=== PATIENT | male | born 2005 | race African-American/Black ===

== ENCOUNTER 2024-03-22 23:11 | Emergency (ER) | payer OTHER ==
[2024-03-22] MEDS ORDERED: Pantoprazole 40 MG VIAL ONE (23:41)
[2024-03-22] MEDS ORDERED: Mag-Al 1200 mg/1200 mg/30 ML UDCUP ONE (23:54)
[2024-03-22] MEDS ORDERED: Lidocaine Viscous Sol 2% 15 ml UD Cup ONE (23:54)
[2024-03-23 00:08] LABS: #Basophils 0.03 10x3/uL (0.0-0.2); %Basophils 0.6 % (0.0-1.0); %Eosinophils 9.3 % (0.0-10.0); %Lymphocytes 47.2 % (28.0-48.0); %Monocytes 7.6 % (0.0-4.0); %Neutrophils 35.1 % (31.0-61.0); Hematocrit 43.1 % (42.0-52.0); Hemoglobin 13.8 g/dL (14.0-18.0); Mean Corpuscular Hemoglobin 27.1 pg (25.0-35.0); Mean Corpuscular Volume 84.7 fL (78.0-98.0); Mean Platelet Volume 10.6 fL (7.4-10.4); Platelet Count 199 10x3/uL (130-400); Red Blood Cell (RBC) Count 5.09 mill/uL (4.00-5.20)
[2024-03-23 00:30] LABS: ALT (SGPT) 20 U/L (8-55); Albumin 4.1 g/dL (3.5-5.0); Alkaline Phosphatase 95 U/L (50-130); Anion Gap 10 mmol/L (10-20); BUN (Urea Nitrogen) 10 mg/dL (8.9-20.6); Bilirubin, Total 0.2 mg/dL (0.2-1.2); Calc. Creatinine Clearance 0 mL/min (70-130); Calcium 9.3 mg/dL (7.8-10.44); Carbon Dioxide 26 mmol/L (22-29); Chloride 108 mmol/L (98-107); Estimated GFR 113; Globulin 2.7 g/dL (2.4-3.5); Glucose 96 mg/dL (70-105); Lipase 17 U/L (8-78); Potassium 3.9 mmol/L (3.5-5.1); Protein, Total 6.8 g/dL (6.0-8.3); Sodium 140 mmol/L (136-145)
[2024-03-23 00:32] LABS: Troponin I Less than 0.010 ng/mL (< 0.028)
[2024-03-23 01:44] LABS: AST (SGOT) 21 U/L (5-34)
== END 2024-03-23 01:38 | disposition home or self-care (01) ==
LOC: ERS 23:11
DX: K20.90 Esophagitis, unspecified without bleeding (principal); R07.89 Other chest pain
CPT/HCPCS: 36415; 71045; 80053; 83690; 84484; 85025; 85379; 87426; 93005; J2470